=== PATIENT | female | born 1980 | race Caucasian/White ===

== ENCOUNTER 2021-08-29 21:05 | Emergency (ER) | payer SELFPAY ==
[~2021-08-29] VITALS: Ht 154.9 cm; Wt 67.3 kg
[~2021-08-29 21:05] MED LIST: SULF1TAB24 PO
[2021-08-29 21:20] VITALS: BP 144/88
--- NOTE | 2021-08-29 21:23 | PHYS DOC ---
Past History Past Medical History: Other Past Surgical History: No Surgical History Smoking: Cigarettes Alcohol Use: None Drug Use: None Adult General Chief Complaint Chief Complaint: LOWER EXT PAIN HPI HPI Patient is a 41-year-old female presents with left ankle pain after twisting it when stepping off a step stool, pain is a 6 out of 10, dull and achy in nature but he is able to walk. Denies any other injuries. Review of Systems Review of Systems Review of systems otherwise unremarkable except noted in HPI Allergies Allergies Allergies Coded Allergies Type Severity Reaction Last Updated Verified No Known Drug Allergies 11/01/14 No Physical Exam Physical Exam Constitutional: Well developed, well nourished, no acute distress, non-toxic appearance. [] HENT: Normocephalic, atraumatic, Skin: Warm, dry, no erythema, no rash. [] Back: No tenderness, Extremities: Tenderness at bruising, deformities or swelling, neurovascular exam intact Neurologic: Alert and oriented X 3, normal motor function, normal sensory function, able to sit, stand and walk, no focal deficits noted. [] Psychologic: Affect normal, judgement normal, mood normal. [] EKG EKG [] Radiology/Procedures Radiology/Procedures [] Heart Score C/O Chest Pain: No Risk Factors: Risk Factors: DM, Current or recent (<one month) smoker, HTN, HLP, family history of CAD, obesity. Risk Scores: Risk Factors: DM, Current or recent (<one month) smoker, HTN, HLP, family history of CAD, obesity. Course & Med Decision Making Course & Med Decision Making Patient is a 41-year-old female that presents with left ankle pain Vital signs not concerning. Physical exam noted above. Given ice pack and Tylenol. Imaging with no acute osseous abnormalities. Discussed symptom management at home. Advised to follow-up with primary care as needed. Gave return precautions to the ED. Patient grateful, verbalized understanding and agreed with plan of discharge. [] Dragon Disclaimer Dragon Disclaimer This electronic medical record was generated, in whole or in part, using a voice recognition dictation system. Departure Departure: Impression: Primary Impression: Left ankle pain Additional Impression: Ankle sprain Disposition: HOME / SELF CARE / HOMELESS Condition: GOOD Referrals: PCP,NETO (PCP) CHEVY NEVAREZ Patient Instructions: Ankle Sprain, RICE - Routine Care for Injuries Additional Instructions: Thank you for coming into the emergency department today and allowing us to take care of you. Please read the attached information carefully to go back over things we discussed. Please begin a Tylenol, ibuprofen and ice regimen as we discussed as needed. Please follow-up with your primary care physician on Tuesday to update on your ED visit and set up a follow-up as needed. Please come back to the ED with new or concerning symptoms as we discussed. Problem Qualifiers SHANNON ROACH MD Aug 29, 2021 21:23
--- NOTE | 2021-08-29 21:47 | RAD ---
Study: 1. XR EXAM OF ANKLE_LEFT 3V 2. XR LT TIBIA + FIBULA Indication: Fall. Pain. Comparison: None. Findings: Left tibia/fibula: The partially assessed knee is unremarkable. The proximal aspect of the tibia and fibula are intact. Unremarkable calf soft tissues. Left ankle: The malleoli are intact. Trace spurring at the tip of the medial malleolus. Mild edematous prominence of the soft tissues at the anterolateral ankle. Symmetric ankle mortise considering the absence of w eightbearing. No acute fracture seen throughout the partially assessed foot. Os trigonum. Trace enthe sophyte formation at the Achilles insertion. Maintained joint spaces. Unremarkable talar dome. Impression: Left tibia/fibula and left ankle: No acute osseous abnormality. Electronically signed by: ROSIE IBRAHIM MD (08/29/2021 9:45 PM) [facility]
[2021-08-29] MEDS ORDERED: ACETAMINOPHEN 500 MG TABLET PO ONE (22:00)
== END 2021-08-29 21:59 | disposition home or self-care (01) ==
LOC: ER 21:05
DX: S93.402A Sprain of unspecified ligament of left ankle, initial encounter (principal); F17.210 Nicotine dependence, cigarettes, uncomplicated; X50.1XXA Overexertion from prolonged static or awkward postures, initial encounter; Y93.89 Activity, other specified; Y92.89 Other specified places as the place of occurrence of the external cause; Y99.8 Other external cause status
CPT/HCPCS: 73590; 73610; 99284